=== PATIENT | female | born 1990 | race Caucasian/White ===

== ENCOUNTER 2018-12-03 13:18 | Observation (INO) | payer MEDICAID ==
[~2018-12-03] VITALS: Ht 157.5 cm; Wt 71.2 kg
== END 2018-12-03 14:15 | disposition home or self-care (01) ==
LOC: 8 EST LDRP 13:18
PROVIDERS: ADMIT Obstetrics & Gynecology; ATTEND Obstetrics & Gynecology
DX: O48.0 Post-term pregnancy (principal); Z3A.40 40 weeks gestation of pregnancy
CPT/HCPCS: 99281; G0378